=== PATIENT | male | born 1995 | race Caucasian/White ===

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

== ENCOUNTER 2017-01-01 14:46 | Emergency (ER) | payer OTHER ==
[~2017-01-01] VITALS: Ht 180.3 cm; Wt 56.7 kg
[2017-01-01] MEDS ORDERED: ONDANSETRON 2MG/ML, 2ML ONE (15:27)
[2017-01-01] MEDS ORDERED: ONDANSETRON 2MG/ML, 2ML IVPush ONE (15:30)
[2017-01-01] MEDS ORDERED: SODIUM CHLORIDE FLUSH 10ML SYR IVF ONE (15:30)
[2017-01-01] MEDS ORDERED: SODIUM CHLORIDE 0.9% 1,000ML IVBOLUS ONE ×2 (15:30→18:00)
[2017-01-01 15:55] LABS: ASPARTATE AMINO TRANSFERASE 25 U/L (15-37); BLOOD UREA NITROGEN 14 mg/dL (7-18)
[2017-01-01] MEDS ORDERED: MAALOX/HYOSCYAMINE/LIDOCAINE 45 ML BOTTLE ONE (15:59)
[2017-01-01] MEDS ORDERED: MAALOX/HYOSCYAMINE/LIDOCAINE 45 ML BOTTLE PO ONE (16:00)
[2017-01-01 16:59] VITALS: BP 123/65
== END 2017-01-01 17:51 ==
LOC: ED 15:31
DX: K21.9 Gastro-esophageal reflux disease without esophagitis (principal); R81 Glycosuria; D72.829 Elevated white blood cell count, unspecified; R73.9 Hyperglycemia, unspecified
CPT/HCPCS: 36415; 80053; 81001; 83690; 85025; 96361; 96374; 99284; J2405; J7030

== ENCOUNTER 2018-01-02 21:35 | Emergency (ER) | payer OTHER ==
[~2018-01-02] VITALS: Ht 180.3 cm; Wt 61.1 kg
[~2018-01-02 21:35] MED LIST changes: -ONDA-39 PO; +ONDA4TAB12 PO
[2018-01-02 22:18] LABS: BASOPHILS # (AUTO) 0.04 x10^3/uL (0-0.3); BASOPHILS % (AUTO) 0 % (0-1); EOSINOPHILS # (AUTO) 0.04 x10^3/uL (0-0.8); EOSINOPHILS % (AUTO) 0 % (1-7); LYMPHOCYTES % (AUTO) 20 % (22-44); MD NO; MEAN CORPUSCULAR HGB CONC 33.8 g/dL (33.2-36.2); MEAN CORPUSCULAR VOLUME 91.7 fL (81-97); MEAN PLATELET VOLUME 8.7 fL (7.4-10.4); MONOCYTES # (AUTO) 1.13 x10^3/uL (0-1.4); MONOCYTES % (AUTO) 11 % (2-9); NEUTROPHILS # (AUTO) 6.84 x10^3/uL (1.8-8.0); NEUTROPHILS % (AUTO) 68 % (42-75); PLATELET COUNT 226 x10^3/uL (130-400); RED BLOOD COUNT 4.47 x10^6/uL (4.38-5.82); RED CELL DISTRIBUTION WIDTH 13.4 % (9.4-14.8)
[2018-01-02 22:30] LABS: ALANINE AMINOTRANSFERASE 29 U/L (12-78); ALBUMIN 4.4 g/dL (3.4-5.0); ANION GAP 8 mmol/L (5-15); CALCIUM 9.1 mg/dL (8.5-10.1); CHLORIDE 106 mmol/L (98-107); CREATININE 0.79 mg/dL (0.7-1.3)
[2018-01-02] MEDS ORDERED: SODIUM CHLORIDE FLUSH 10ML SYR IVF ONE (22:30)
[2018-01-02] MEDS ORDERED: SODIUM CHLORIDE 0.9% 1,000ML IVBOLUS ONE (22:30)
[2018-01-02 22:32] LABS: ALKALINE PHOSPHATASE 93 U/L (45-117); BILIRUBIN,TOTAL 1.2 mg/dL (0.2-1.0)
[2018-01-02 22:36] LABS: MICROSCOPIC AUTO
[2018-01-02] MEDS ORDERED: DIPHENHYDRAMINE 50 MG/ML, 1ML ONE (22:42)
[2018-01-02] MEDS ORDERED: POTASSIUM CHLORIDE 20 MEQ TAB.ER.PRT ONE (22:42)
[2018-01-02 22:44] LABS: CULTURE INDICATED? NO
[2018-01-02 22:47] LABS: AMPHETAMINE SCREEN, URINE Negative (Negative); BARBITURATE SCREEN, URINE Negative (Negative); BENZODIAZEPINE SCREEN, URINE Negative (Negative); CANNABINOID SCREEN, URINE Positive (Negative); COCAINE SCREEN, URINE Negative (Negative); METHADONE SCREEN, URINE Negative (Negative); OPIATE SCREEN, URINE Negative (Negative)
[2018-01-02] MEDS ORDERED: POTASSIUM CHLORIDE 20 MEQ TAB.ER.PRT PO ONE (23:00)
[2018-01-02] MEDS ORDERED: DIPHENHYDRAMINE 50 MG/ML, 1ML IVPush ONE (23:00)
[2018-01-02 23:17] VITALS: BP 127/78
== END 2018-01-03 00:08 | disposition home or self-care (01) ==
LOC: ED 22:10
DX: F41.1 Generalized anxiety disorder (principal); E87.6 Hypokalemia; M62.838 Other muscle spasm
CPT/HCPCS: 36415; 71045; 80053; 80307; 81001; 85025; 96361; 96374; 99285; J1200; J7030

== ENCOUNTER 2018-04-15 02:58 | Emergency (ER) | payer OTHER ==
[~2018-04-15] VITALS: Ht 180.3 cm; Wt 63.8 kg
[2018-04-15 04:04] VITALS: BP 116/72
== END 2018-04-15 04:06 | disposition home or self-care (01) ==
LOC: ED 03:33
DX: F10.120 Alcohol abuse with intoxication, uncomplicated (principal); F19.129 Other psychoactive substance abuse with intoxication, unspecified; Z90.49 Acquired absence of other specified parts of digestive tract
CPT/HCPCS: 99283

== ENCOUNTER 2018-04-27 06:50 | Emergency (ER) | payer OTHER ==
[~2018-04-27] VITALS: Ht 180.3 cm; Wt 63.6 kg
[2018-04-27] MEDS ORDERED: METOCLOPRAMIDE 5 MG/ML, 2ML ONE (07:18)
[2018-04-27] MEDS ORDERED: DIPHENHYDRAMINE 50 MG/ML, 1ML ONE (07:18)
[2018-04-27] MEDS ORDERED: PROMETHAZINE 25 MG/ML, 1ML ONE (07:18)
[2018-04-27] MEDS ORDERED: MAALOX/HYOSCYAMINE/LIDOCAINE 45 ML BTL ONE (07:19)
[2018-04-27] MEDS ORDERED: FAMOTIDINE 20 MG/2 ML ONE (07:19)
[2018-04-27 07:30] LABS: BASOPHILS # (AUTO) 0.02 x10^3/uL (0-0.3); BASOPHILS % (AUTO) 0 % (0-1); EOSINOPHILS # (AUTO) 0.06 x10^3/uL (0-0.8); EOSINOPHILS % (AUTO) 1 % (1-7); LYMPHOCYTES # (AUTO) 1.76 x10^3/uL (1-6.1); LYMPHOCYTES % (AUTO) 14 % (22-44); MD NO; MEAN CORPUSCULAR HEMOGLOBIN 30.5 pg (27.5-34.5); MEAN CORPUSCULAR VOLUME 89.8 fL (81-97); MEAN PLATELET VOLUME 9.5 fL (7.4-10.4); MONOCYTES # (AUTO) 0.85 x10^3/uL (0-1.4); MONOCYTES % (AUTO) 7 % (2-9); NEUTROPHILS # (AUTO) 9.58 x10^3/uL (1.8-8.0); NEUTROPHILS % (AUTO) 78 % (42-75); PLATELET COUNT 245 x10^3/uL (130-400); RED BLOOD COUNT 4.79 x10^6/uL (4.38-5.82); RED CELL DISTRIBUTION WIDTH 13.1 % (9.4-14.8)
[2018-04-27] MEDS ORDERED: METOCLOPRAMIDE 5 MG/ML, 2ML IVPush ONE (07:30)
[2018-04-27] MEDS ORDERED: PROMETHAZINE 25 MG/ML, 1ML IM ONE (07:30)
[2018-04-27] MEDS ORDERED: SODIUM CHLORIDE 0.9% 1,000ML IVBOLUS ONE (07:30)
[2018-04-27] MEDS ORDERED: FAMOTIDINE 20 MG/2 ML IVP ONE (07:30)
[2018-04-27] MEDS ORDERED: CAPSAICIN CRM 0.075%, 60GM TP ONE (07:30)
[2018-04-27] MEDS ORDERED: DIPHENHYDRAMINE 50 MG/ML, 1ML IVPush ONE (07:30)
[2018-04-27] MEDS ORDERED: MAALOX/HYOSCYAMINE/LIDOCAINE 45 ML BTL PO ONE (07:30)
[2018-04-27 07:42] LABS: ALANINE AMINOTRANSFERASE 31 U/L (12-78); ALBUMIN 4.5 g/dL (3.4-5.0); ANION GAP 11 mmol/L (5-15); CALCIUM 9.4 mg/dL (8.5-10.1); CHLORIDE 105 mmol/L (98-107); CREATININE 0.96 mg/dL (0.7-1.3)
[2018-04-27 07:44] LABS: ALKALINE PHOSPHATASE 105 U/L (45-117); BILIRUBIN,TOTAL 0.9 mg/dL (0.2-1.0); TOTAL PROTEIN 7.3 g/dL (6.4-8.2)
[2018-04-27] MEDS ORDERED: HYDROmorphone 2 MG/ML, 1ML ONE (08:09)
[2018-04-27] MEDS ORDERED: ZIPRASIDONE 20 MG INJ IM ONE (08:30)
[2018-04-27] MEDS ORDERED: HYDROmorphone 1 MG/ML, 1ML IV ONE (08:30)
[2018-04-27] MEDS ORDERED: POTASSIUM CHLORIDE 20 MEQ TAB.ER.PRT PO ONE (08:30)
[2018-04-27] MEDS ORDERED: SODIUM CHLORIDE 0.9% 100 ML IV ONE (08:30)
[2018-04-27] MEDS ORDERED: POTASSIUM CHLORIDE 20 MEQ TAB.ER.PRT ONE (08:45)
[2018-04-27 10:04] VITALS: BP 108/69
== END 2018-04-27 10:06 | disposition home or self-care (01) ==
LOC: ED 07:18
DX: R10.13 Epigastric pain (principal); R11.2 Nausea with vomiting, unspecified; E86.0 Dehydration; E87.6 Hypokalemia; F17.200 Nicotine dependence, unspecified, uncomplicated
CPT/HCPCS: 36415; 80053; 80307; 83690; 85025; 96361; 96372; 96374; 96375; 99284; J1170; J1200; J2550; J2765; J3490; J7030

== ENCOUNTER 2018-10-27 12:36 | Emergency (ER) | payer OTHER ==
[~2018-10-27] VITALS: Ht 180.3 cm; Wt 62.2 kg
[2018-10-27 13:11] LABS: BASOPHILS # (AUTO) 0.03 x10^3/uL (0-0.1); BASOPHILS % (AUTO) 0 % (0-1); EOSINOPHILS % (AUTO) 0 % (1-7); LYMPHOCYTES # (AUTO) 1.03 x10^3/uL (1-3.4); LYMPHOCYTES % (AUTO) 6 % (22-44); MD NO; MEAN CORPUSCULAR HEMOGLOBIN 31.2 pg (27.5-34.5); MEAN CORPUSCULAR HGB CONC 34.2 g/dL (33.2-36.2); MEAN CORPUSCULAR VOLUME 91.1 fL (81-97); MEAN PLATELET VOLUME 9.8 fL (7.4-10.4); MONOCYTES # (AUTO) 0.72 x10^3/uL (0.2-0.8); MONOCYTES % (AUTO) 4 % (2-9); NEUTROPHILS # (AUTO) 15.28 x10^3/uL (1.8-6.8); NEUTROPHILS % (AUTO) 90 % (42-75); PLATELET COUNT 264 x10^3/uL (130-400); RED BLOOD COUNT 5.14 x10^6/uL (4.38-5.82); RED CELL DISTRIBUTION WIDTH 12.8 % (9.4-14.8)
[2018-10-27 13:19] LABS: ALANINE AMINOTRANSFERASE 27 U/L (12-78); ALBUMIN 4.9 g/dL (3.4-5.0); ANION GAP 9 mmol/L (5-15); CALCIUM 9.9 mg/dL (8.5-10.1); CHLORIDE 108 mmol/L (98-107); CREATININE 0.97 mg/dL (0.7-1.3)
[2018-10-27 13:21] LABS: ALKALINE PHOSPHATASE 129 U/L (45-117); BILIRUBIN,TOTAL 0.9 mg/dL (0.2-1.0); TOTAL PROTEIN 7.9 g/dL (6.4-8.2)
--- NOTE | 2018-10-27 13:30 | NUR ---
ACCOUNTS PAYABLE OR RECEIVABLE CLERK: PT TO ED ROOM 14 FROM LOBBY IN NAD AT THIS TIME
--- NOTE | 2018-10-27 13:43 | NUR ---
PT RESTING IN POSITION OF COMFORT IN [place]. AWARE OF NEED FOR UA, CUP AT BEDSIDE, PT INSTRUCTED ON USE OF CALL LIGHT, VERBALIZED UNDERSTANDING. FALL PRECAUTIONS IN PLACE. CONT SPO2 MONITORING IN PLACE. VSS.
[2018-10-27] MEDS ORDERED: FAMOTIDINE 20 MG TABLET ONE (13:47)
[2018-10-27] MEDS ORDERED: ONDANSETRON ODT 4 MG ONE (13:47)
[2018-10-27] MEDS ORDERED: MAALOX/HYOSCYAMINE/LIDOCAINE 45 ML BTL ONE (13:47)
[2018-10-27] MEDS ORDERED: ONDANSETRON ODT 4 MG PO ONE (14:00)
[2018-10-27] MEDS ORDERED: MAALOX/HYOSCYAMINE/LIDOCAINE 45 ML BTL PO ONE (14:00)
[2018-10-27] MEDS ORDERED: FAMOTIDINE 20 MG TABLET PO ONE (14:00)
--- NOTE | 2018-10-27 14:14 | NUR ---
RECEIVED BEDSIDE REPORT FROM DOMINIK GAVIRIA.
--- NOTE | 2018-10-27 14:19 | NUR ---
PER EDPA, UA NOT NEEDED
[2018-10-27] MEDS ORDERED: PROMETHAZINE 25 MG/ML, 1ML IM ONE (14:30)
[2018-10-27] MEDS ORDERED: PROMETHAZINE 25 MG/ML, 1ML ONE (15:03)
--- NOTE | 2018-10-27 15:07 | NUR ---
PT RESTING ON GURNEY. PT STATES HE HAS SPECIALIST FOR HIS STOMACH IN [place], PT WILL FOLLOW UP WHEN HE GET HOME. NO NEEDS REQUESTED AT THIS TIME.
[2018-10-27] MEDS ORDERED: SODIUM CHLORIDE FLUSH 10ML SYR IVF ONE (15:30)
[2018-10-27] MEDS ORDERED: SODIUM CHLORIDE 0.9% 1,000ML IVBOLUS ONE (15:30)
--- NOTE | 2018-10-27 15:42 | NUR ---
piv established. pt tolerated with no complications. no needs requested at this time.
--- NOTE | 2018-10-27 16:16 | NUR ---
PT RESTING ON [facility]. IVF INFUSING. AWAITING CT.
--- NOTE | 2018-10-27 17:13 | NUR ---
pt to imaging
--- NOTE | 2018-10-27 17:22 | NUR ---
PT BACK FROM IMAGING.
[2018-10-27] MEDS ORDERED: OMNIPAQUE 350 MG/ML, 100ML BOTTLE ONE (17:25)
--- NOTE | 2018-10-27 17:32 | NUR ---
pt resting on lilia. NO ACUTE DISTRESS NOTED. PT STATES "WILL I BE DONE HERE BY 6PM? MY RIDE TO [place] IS LEAVING AT 6pm AND I HAVE TO GO WITH THEM." NO NEEDS REQUESTED AT THIS TIME. Addendum: 10/27/18 at 1733 by KWVANESA EDUCATED PT REGARDING RADIOLOGY READING AND EDMD SEEING RESULTED IMAGE.
[2018-10-27 17:35] VITALS: BP 114/67
--- NOTE | 2018-10-27 17:54 | NUR ---
Patient/Caregiver given discharge instructions and they have confirmed that they understand the instructions. Patient ambulatory with steady gait. PT LEFT WITH ALL PERSONAL BELONGINGS.
== END 2018-10-27 17:56 | disposition home or self-care (01) ==
LOC: ED 15:39
DX: R10.13 Epigastric pain (principal); R10.11 Right upper quadrant pain; R10.12 Left upper quadrant pain; R11.2 Nausea with vomiting, unspecified; R19.7 Diarrhea, unspecified; Z88.8 Allergy status to other drugs, medicaments and biological substances; Z90.89 Acquired absence of other organs
CPT/HCPCS: 36415; 74177; 80053; 83690; 85025; 96360; 96372; 99284; J2550; J7030; Q0162; Q9967

== ENCOUNTER 2019-05-28 09:03 | Inpatient (IN) | payer BC, OTHER ==
[~2019-05-28] VITALS: Ht 180.3 cm; Wt 63.6 kg
[~2019-05-28 09:03] MED LIST changes: -ACET-1757 PO; +ACET-2065 PO
--- NOTE | 2019-05-28 09:51 | NUR ---
PT IN BED, SMALL EMESIS X 1, BILE COLORED. IV STARTED, LABS DRAWN AND SENT. ERP AT BEDSIDE. REPORT TO DOMINIK MADSEN.
[2019-05-28] MEDS ORDERED: FAMOTIDINE 20 MG/2 ML ONE (09:54)
[2019-05-28] MEDS ORDERED: MAALOX/HYOSCYAMINE/LIDOCAINE 45 ML BTL ONE (09:54)
[2019-05-28] MEDS ORDERED: ONDANSETRON 2MG/ML, 2ML ONE ×2 (09:54→13:07)
[2019-05-28 10:00] LABS: MEAN CORPUSCULAR HEMOGLOBIN 30.7 pg (27.5-34.5); MEAN CORPUSCULAR HGB CONC 33.8 g/dL (33.2-36.2); MEAN PLATELET VOLUME 8.7 fL (7.4-10.4); PLATELET COUNT 285 x10^3/uL (130-400); RED BLOOD COUNT 5.31 x10^6/uL (4.38-5.82); RED CELL DISTRIBUTION WIDTH 12.9 % (9.4-14.8)
[2019-05-28] MEDS ORDERED: ONDANSETRON 2MG/ML, 2ML IVPush ONE ×2 (10:00→13:00)
[2019-05-28] MEDS ORDERED: SODIUM CHLORIDE FLUSH 10ML SYR IVF ONE (10:00)
[2019-05-28] MEDS ORDERED: SODIUM CHLORIDE 0.9% 1,000ML IVBOLUS ONE (10:00)
[2019-05-28] MEDS ORDERED: FAMOTIDINE 20 MG/2 ML IVPush ONE (10:00)
[2019-05-28] MEDS ORDERED: MAALOX/HYOSCYAMINE/LIDOCAINE 45 ML BTL PO ONE (10:00)
--- NOTE | 2019-05-28 10:04 | NUR ---
PT RESTING IN ROOM. VSS. PT MEDICATED PER MAR AND IVF STARTED. NO VOMITING SINCE PACKAGING COORDINATOR. NO NEEDS EXPRESSED. CALL LIGHT WITHIN REACH. AWAITING RESUTLS.
[2019-05-28 10:10] LABS: MICROSCOPIC INDICATED
[2019-05-28 10:10] LABS: ALANINE AMINOTRANSFERASE 35 U/L (12-78); ALBUMIN 4.6 g/dL (3.4-5.0); ANION GAP 10 mmol/L (5-15); CALCIUM 9.4 mg/dL (8.5-10.1); CHLORIDE 107 mmol/L (98-107); CREATININE 0.95 mg/dL (0.7-1.3)
[2019-05-28 10:12] LABS: ALKALINE PHOSPHATASE 122 U/L (45-117); BILIRUBIN,TOTAL 0.6 mg/dL (0.2-1.0); TOTAL PROTEIN 7.5 g/dL (6.4-8.2)
[2019-05-28] MEDS ORDERED: METOCLOPRAMIDE 5 MG/ML, 2ML ONE (10:20)
[2019-05-28] MEDS ORDERED: DIPHENHYDRAMINE 50 MG/ML, 1ML ONE (10:20)
--- NOTE | 2019-05-28 10:21 | NUR ---
PT STILL DRY HEAVING. PT REPORT HASN'T EATEN SINCE LAST NOC, SO "THERE ISN'T ANYTHIGN TO THROW UP." DR. BAEZ NOTIFIED. AWAITING NEW ORDERS.
[2019-05-28 10:29] LABS: MD YES
[2019-05-28] MEDS ORDERED: DIPHENHYDRAMINE 50 MG/ML, 1ML IVPush ONE (10:30)
[2019-05-28] MEDS ORDERED: METOCLOPRAMIDE 5 MG/ML, 2ML IVPush ONE (10:30)
[2019-05-28 10:33] LABS: BAND#(MANUAL) 2.85 x10^3/uL; BANDS%(MANUAL) 13 % (0-7); BASOS#(MANUAL) 0.22 x10^3/uL (0-0.1); BASOS% (MANUAL) 1 % (0-1); LYMPHS% (MANUAL) 16 % (22-44); MONOS#(MANUAL) 0.44 x10^3/uL (0.3-2.7); MONOS% (MANUAL) 2 % (2-9); SEG#(MANUAL) 14.89 x10^3/uL (1.8-6.8); SEGS% (MANUAL) 68 % (42-75)
--- NOTE | 2019-05-28 10:35 | NUR ---
PT MEDICATED PER MAR.
[2019-05-28 10:38] LABS: <PLATELET ESTIMATE> ADEQUATE; <RBC MORPHOLOGY> NORMAL; LARGE PLATELETS 1+
--- NOTE | 2019-05-28 10:49 | NUR ---
new orders for abd ct received.
--- NOTE | 2019-05-28 11:41 | NUR ---
pt to ct.
[2019-05-28] MEDS ORDERED: OMNIPAQUE 350 MG/ML, 100ML BOTTLE ONE (11:47)
--- NOTE | 2019-05-28 11:52 | NUR ---
PT MALORIE FROM CT. TO BS TO REEVALUATE. PT REMAINS N/V. PER EDMD, WILL ADD ON MEDICATIONS. AWAITING ORDERS.
[2019-05-28] MEDS ORDERED: PROMETHAZINE 25 MG/ML, 1ML ONE (11:54)
[2019-05-28] MEDS ORDERED: PROMETHAZINE 25 MG/ML, 1ML IM ONE (12:00)
[2019-05-28] MEDS ORDERED: METRONIDAZOLE PMX 500MG/100ML 100 ML IV ONE (12:00)
[2019-05-28] MEDS ORDERED: AMPICILLIN/SULBACTAM 3 GM in SODIUM CHLORIDE 0.9% 100 ML IV ONE (12:00)
--- NOTE | 2019-05-28 12:01 | NUR ---
pt medicted per mar. vss.
[2019-05-28] MEDS ORDERED: METRONIDAZOLE PMX 500MG/100ML 100 ML ONE (12:07)
[2019-05-28] MEDS ORDERED: MORPHINE SULFATE 4 MG/ML, 1ML ONE (12:38)
[2019-05-28] MEDS ORDERED: GUAIFENESIN/DM 200-20MG, 10ML UDC PO PRN (13:00)
[2019-05-28] MEDS ORDERED: POLYETHYLENE GLYCOL 17 GM PACKET PO PRN (13:00)
[2019-05-28] MEDS ORDERED: MORPHINE SULFATE 4 MG/ML, 1ML IVPush ONE (13:00)
[2019-05-28] MEDS ORDERED: KETOROLAC 30 MG/1 ML IV PRN (13:00)
[2019-05-28] MEDS ORDERED: BUTALB/APAP/CAFFEINE 50MG/325MG/40MG PO PRN ×2 (13:00)
[2019-05-28] MEDS ORDERED: ACETAMINOPHEN 325 MG TABLET PO PRN (13:00)
[2019-05-28] MEDS ORDERED: hydrALAzine 20 MG/ML, 1ML IVPush PRN (13:00)
--- NOTE | 2019-05-28 13:13 | NUR ---
pt resting in room. vss. hospitalist to bs. assessment complete and floor orders received. ivf started. repeat ekg completed per Dr. Ramirez. orders for zofran received ang med administered. no needs expressed at this time. call light within reach. awaiting room assignment.
--- NOTE | 2019-05-28 13:31 | NUR ---
report to yulia aceves. pt ready for transport.
[2019-05-28] MEDS: D5%-0.45% NACL 1,000 ML IV SCH (14:10)
[2019-05-28 14:52] VITALS: BP 110/61
[2019-05-28] MEDS: LACTOBACILLUS 1GM/ PACKET PO SCH ×2 (16:52→22:14)
[2019-05-28] MEDS: ONDANSETRON 2MG/ML, 2ML IVPush PRN (16:53)
[2019-05-28 19:26] VITALS: BP 101/59
[2019-05-28] MEDS: METRONIDAZOLE PMX 500MG/100ML 100 ML IV SCH (22:04)
[2019-05-28] MEDS: METOCLOPRAMIDE 5 MG/ML, 2ML IVPush PRN (22:22)
[2019-05-28] MEDS: TEMAZEPAM 15 MG CAPSULE PO PRN (22:28)
[2019-05-28] MEDS: CEFTRIAXONE PMX 1GM/50ML 50 ML IV SCH (23:55)
[2019-05-29 01:19] VITALS: BP 104/61
[2019-05-29] MEDS: D5%-0.45% NACL 1,000 ML IV SCH (05:15)
[2019-05-29] MEDS: LACTOBACILLUS 1GM/ PACKET PO SCH ×4 (05:58→20:22)
[2019-05-29] MEDS: METRONIDAZOLE PMX 500MG/100ML 100 ML IV SCH ×3 (05:59→21:48)
[2019-05-29] MEDS: HYDROmorphone 2 MG/ML, 1ML IVPush PRN ×4 (06:14→21:48)
[2019-05-29 06:15] VITALS: BP 132/77
[2019-05-29] MEDS: ONDANSETRON 2MG/ML, 2ML IVPush PRN ×3 (06:15→21:47)
[2019-05-29 06:30] LABS: MEAN CORPUSCULAR HEMOGLOBIN 30.9 pg (27.5-34.5); MEAN CORPUSCULAR HGB CONC 33.3 g/dL (33.2-36.2); MEAN CORPUSCULAR VOLUME 92.7 fL (81-97); MEAN PLATELET VOLUME 9.5 fL (7.4-10.4); PLATELET COUNT 236 x10^3/uL (130-400); RED BLOOD COUNT 4.93 x10^6/uL (4.38-5.82)
[2019-05-29 06:49] LABS: BASOPHILS # (AUTO) 0.04 x10^3/uL (0-0.1); BASOPHILS % (AUTO) 0 % (0-1); EOSINOPHILS # (AUTO) 0.26 x10^3/uL (0-0.4); EOSINOPHILS % (AUTO) 2 % (1-7); LYMPHOCYTES % (AUTO) 16 % (22-44); MD SCAN; MONOCYTES % (AUTO) 10 % (2-9); NEUTROPHILS # (AUTO) 8.32 x10^3/uL (1.8-6.8); NEUTROPHILS % (AUTO) 72 % (42-75)
[2019-05-29] MEDS: CEFTRIAXONE PMX 1GM/50ML 50 ML IV SCH ×2 (08:35→20:25)
[2019-05-29] MEDS ORDERED: POTASSIUM CHLORIDE 20 MEQ TAB.ER.PRT PO ONE (10:00)
[2019-05-29] MEDS: ONDANSETRON ODT 4 MG PO PRN ×2 (11:35→16:18)
[2019-05-29 12:57] VITALS: BP 105/66
[2019-05-29 19:25] VITALS: BP 113/66
[2019-05-29] MEDS: METOCLOPRAMIDE 5 MG/ML, 2ML IVPush PRN (20:25)
[2019-05-30] MEDS: ONDANSETRON ODT 4 MG PO PRN (01:41)
[2019-05-30] MEDS: HYDROmorphone 2 MG/ML, 1ML IVPush PRN ×3 (01:42→13:54)
[2019-05-30 02:04] VITALS: BP 130/68
[2019-05-30] MEDS: METRONIDAZOLE PMX 500MG/100ML 100 ML IV SCH ×3 (05:57→21:56)
[2019-05-30] MEDS: METOCLOPRAMIDE 5 MG/ML, 2ML IVPush PRN ×3 (05:58→20:08)
[2019-05-30] MEDS: LACTOBACILLUS 1GM/ PACKET PO SCH ×5 (06:01→20:09)
[2019-05-30] MEDS: D5%-0.45% NACL 1,000 ML IV SCH (06:01)
[2019-05-30] MEDS: ONDANSETRON 2MG/ML, 2ML IVPush PRN ×2 (07:12→23:48)
[2019-05-30] MEDS: CEFTRIAXONE PMX 1GM/50ML 50 ML IV SCH ×2 (08:18→20:08)
[2019-05-30 08:48] VITALS: BP 122/68
[2019-05-30 09:38] VITALS: BP 109/61
[2019-05-30] MEDS ORDERED: PROCHLORPERAZINE 5 MG/ML, 2ML IVPush ONE (10:30)
[2019-05-30] MEDS ORDERED: DIPHENHYDRAMINE 50 MG/ML, 1ML IVPush ONE (10:30)
[2019-05-30 11:28] LABS: BASOPHILS # (AUTO) 0.02 x10^3/uL (0-0.1); BASOPHILS % (AUTO) 0 % (0-1); EOSINOPHILS # (AUTO) 0.01 x10^3/uL (0-0.4); EOSINOPHILS % (AUTO) 0 % (1-7); LYMPHOCYTES # (AUTO) 1.05 x10^3/uL (1-3.4); LYMPHOCYTES % (AUTO) 10 % (22-44); MD NO; MEAN CORPUSCULAR HEMOGLOBIN 30.4 pg (27.5-34.5); MEAN CORPUSCULAR HGB CONC 33.6 g/dL (33.2-36.2); MEAN CORPUSCULAR VOLUME 90.5 fL (81-97); MEAN PLATELET VOLUME 8.6 fL (7.4-10.4); MONOCYTES # (AUTO) 0.49 x10^3/uL (0.2-0.8); MONOCYTES % (AUTO) 5 % (2-9); NEUTROPHILS # (AUTO) 9.13 x10^3/uL (1.8-6.8); NEUTROPHILS % (AUTO) 85 % (42-75); PLATELET COUNT 245 x10^3/uL (130-400); RED BLOOD COUNT 5.23 x10^6/uL (4.38-5.82); RED CELL DISTRIBUTION WIDTH 12.9 % (9.4-14.8)
[2019-05-30 11:40] LABS: ALANINE AMINOTRANSFERASE 34 U/L (12-78); ALBUMIN 4.4 g/dL (3.4-5.0); ANION GAP 12 mmol/L (5-15); CALCIUM 9.2 mg/dL (8.5-10.1); CHLORIDE 106 mmol/L (98-107); CREATININE 0.98 mg/dL (0.7-1.3)
[2019-05-30 11:43] LABS: ALKALINE PHOSPHATASE 99 U/L (45-117); BILIRUBIN,TOTAL 1.3 mg/dL (0.2-1.0); TOTAL PROTEIN 7.5 g/dL (6.4-8.2)
[2019-05-30 13:24] VITALS: BP 116/68
[2019-05-30 16:53] LABS: CLOSTRIDIUM DIFFICILE ANTIGEN NEGATIVE; CLOSTRIDIUM DIFFICILE TOXIN NEGATIVE (Negative)
[2019-05-30] MEDS ORDERED: MAGNESIUM SULFATE PMX 2GM/50ML 50 ML IV ONE (17:00)
[2019-05-30] MEDS ORDERED: POTASSIUM CHLORIDE 40 MEQ in SODIUM CHLORIDE 0.9% 500 ML IV ONE (17:00)
[2019-05-30 19:40] VITALS: BP 117/67
[2019-05-30] MEDS: morphine SULFATE 10 MG/ML, 1ML IVPush PRN ×2 (20:09→23:48)
[2019-05-30] MEDS: TEMAZEPAM 15 MG CAPSULE PO PRN (21:42)
[2019-05-31 01:26] VITALS: BP 97/54
[2019-05-31] MEDS: METOCLOPRAMIDE 5 MG/ML, 2ML IVPush PRN (06:06)
[2019-05-31] MEDS: METRONIDAZOLE PMX 500MG/100ML 100 ML IV SCH (06:08)
[2019-05-31] MEDS: LACTOBACILLUS 1GM/ PACKET PO SCH ×2 (06:08→11:00)
[2019-05-31] MEDS: morphine SULFATE 10 MG/ML, 1ML IVPush PRN (06:08)
[2019-05-31 07:39] VITALS: BP 125/60
[2019-05-31] MEDS: CEFTRIAXONE PMX 1GM/50ML 50 ML IV SCH (07:46)
[2019-05-31 08:10] LABS: BASOPHILS # (AUTO) 0.09 x10^3/uL (0-0.1); BASOPHILS % (AUTO) 1 % (0-1); EOSINOPHILS # (AUTO) 0.03 x10^3/uL (0-0.4); EOSINOPHILS % (AUTO) 0 % (1-7); LYMPHOCYTES # (AUTO) 1.26 x10^3/uL (1-3.4); LYMPHOCYTES % (AUTO) 11 % (22-44); MD NO; MEAN PLATELET VOLUME 8.6 fL (7.4-10.4); MONOCYTES % (AUTO) 6 % (2-9); NEUTROPHILS # (AUTO) 9.91 x10^3/uL (1.8-6.8); NEUTROPHILS % (AUTO) 83 % (42-75); PLATELET COUNT 231 x10^3/uL (130-400); RED BLOOD COUNT 5.07 x10^6/uL (4.38-5.82); RED CELL DISTRIBUTION WIDTH 12.8 % (9.4-14.8)
[2019-05-31 08:21] LABS: ALBUMIN 4.3 g/dL (3.4-5.0); ANION GAP 12 mmol/L (5-15); CHLORIDE 106 mmol/L (98-107)
[2019-05-31 08:25] LABS: ALANINE AMINOTRANSFERASE 30 U/L (12-78); ALKALINE PHOSPHATASE 96 U/L (45-117); BILIRUBIN,TOTAL 1.3 mg/dL (0.2-1.0); CREATININE 0.77 mg/dL (0.7-1.3); TOTAL PROTEIN 7.1 g/dL (6.4-8.2)
[2019-05-31 08:51] LABS: CRYPTOSPORIDIUM ANTIGEN Negative (Negative)
[2019-05-31] MEDS ORDERED: METR500T PO (08:51)
[2019-05-31] MEDS ORDERED: CEFD300C37 PO (08:51)
[2019-05-31] MEDS ORDERED: ONDA4TAB13 PO (08:51)
[2019-05-31] MEDS ORDERED: FLU VACC QS2019-20 36MOS UP/PF 0.5 ML IM-VACC ONE (13:00)
== END 2019-05-31 13:51 | disposition home or self-care (01) | DRG 387 ==
LOC: ED 10:11 → EDIP 12:06 → 3N 13:43 → DCLOUNGE 05-31 13:46
PROVIDERS: ADMIT Family Medicine; ATTEND Family Medicine
DX: K51.90 Ulcerative colitis, unspecified, without complications (principal); D72.825 Bandemia; E87.6 Hypokalemia; F12.90 Cannabis use, unspecified, uncomplicated; G43.909 Migraine, unspecified, not intractable, without status migrainosus; Z88.8 Allergy status to other drugs, medicaments and biological substances
CPT/HCPCS: 36415; 87046; 89055; 99285; J3490; 74177; 80053; 81001; 83735; 85025; 87324; 87328; 87329; 90686; 93005; G0378; J0295; J0696; J1170; J2405; J2550; J3480; Q0162; Q9967; J0780; J1200; J2270; J2765; J3475; J7030; J7040

== ENCOUNTER 2019-06-02 06:36 | Emergency (ER) | payer BC ==
[~2019-06-02] VITALS: Ht 180.3 cm; Wt 63.8 kg
[~2019-06-02 06:36] MED LIST changes: +CEFD300C37 PO; +METR500T PO; +ONDA4TAB13 PO
[2019-06-02] MEDS ORDERED: PROMETHAZINE 25 MG/ML, 1ML IM ONE (07:00)
[2019-06-02] MEDS ORDERED: PROMETHAZINE 25 MG/ML, 1ML ONE (07:09)
--- NOTE | 2019-06-02 07:20 | NUR ---
PT MEDICATED PER ERP ORDER FOR N/V. WARM BLANKETS PROVIDED, CALL LIGHT WITHIN REACH. PT AWARE OF NEED FOR UA, URINE CUP AT BS.
[2019-06-02 07:23] LABS: BASOPHILS # (AUTO) 0.02 x10^3/uL (0-0.1); BASOPHILS % (AUTO) 0 % (0-1); EOSINOPHILS # (AUTO) 0.08 x10^3/uL (0-0.4); EOSINOPHILS % (AUTO) 1 % (1-7); LYMPHOCYTES # (AUTO) 1.51 x10^3/uL (1-3.4); LYMPHOCYTES % (AUTO) 19 % (22-44); MD NO; MEAN CORPUSCULAR HEMOGLOBIN 30.6 pg (27.5-34.5); MEAN CORPUSCULAR HGB CONC 33.8 g/dL (33.2-36.2); MEAN CORPUSCULAR VOLUME 90.7 fL (81-97); MEAN PLATELET VOLUME 8.9 fL (7.4-10.4); MONOCYTES # (AUTO) 0.69 x10^3/uL (0.2-0.8); MONOCYTES % (AUTO) 9 % (2-9); NEUTROPHILS # (AUTO) 5.46 x10^3/uL (1.8-6.8); NEUTROPHILS % (AUTO) 70 % (42-75); PLATELET COUNT 268 x10^3/uL (130-400); RED BLOOD COUNT 5.49 x10^6/uL (4.38-5.82); RED CELL DISTRIBUTION WIDTH 12.5 % (9.4-14.8)
[2019-06-02 07:32] LABS: ALBUMIN 4.8 g/dL (3.4-5.0); ANION GAP 9 mmol/L (5-15); CALCIUM 9.6 mg/dL (8.5-10.1); CHLORIDE 104 mmol/L (98-107); CREATININE 0.97 mg/dL (0.7-1.3)
--- NOTE | 2019-06-02 08:06 | NUR ---
URINE COLLECTED/SENT TO LAB. PT STATES "FEELING BETTER" AFTER PHENERGAN, NO N/V. CALL LIGHT WITHIN REACH.
[2019-06-02 08:19] LABS: MICROSCOPIC INDICATED
[2019-06-02 08:20] LABS: CULTURE INDICATED? YES
--- NOTE | 2019-06-02 09:00 | NUR ---
UA RESULTS BACK, PT FOR RECHECK.
[2019-06-02 09:05] VITALS: BP 121/64
== END 2019-06-02 09:35 | disposition home or self-care (01) ==
LOC: ED 09:29
DX: R11.2 Nausea with vomiting, unspecified (principal); R19.7 Diarrhea, unspecified
CPT/HCPCS: 36415; 80048; 81001; 82040; 85025; 87086; 96372; 99283; J2550

== ENCOUNTER 2020-03-09 09:38 | Emergency (ER) | payer BC ==
[~2020-03-09] VITALS: Ht 180.3 cm; Wt 62.0 kg
[~2020-03-09 09:38] MED LIST changes: +ONDA-89 PO; -ONDA4TAB12 PO
[2020-03-09] MEDS ORDERED: ONDANSETRON 2MG/ML, 2ML ONE (09:55)
[2020-03-09] MEDS ORDERED: ONDANSETRON 2MG/ML, 2ML IVPush ONE (10:00)
[2020-03-09] MEDS ORDERED: SODIUM CHLORIDE FLUSH 10ML SYR IVF ONE (10:00)
[2020-03-09] MEDS ORDERED: SODIUM CHLORIDE 0.9% 1,000ML IVBOLUS ONE (10:00)
--- NOTE | 2020-03-09 10:12 | NUR ---
pt presents to ED with c/o generalized abd pain, n/v/d, cough, and loss of taste/smell onset this am. pt denies sick contacts. on arrival, pt vomiting q10min. bp and spo2 monitors. PIV placed. pt medicated per emar, tolerating well. pt placed in droplet + isolation. call light in reach. awaiting labwork results and dispo.
[2020-03-09] MEDS ORDERED: PROCHLORPERAZINE 5 MG/ML, 2ML ONE (10:19)
[2020-03-09 10:20] LABS: BASOPHILS # (AUTO) 0.03 x10^3/uL (0-0.1); BASOPHILS % (AUTO) 0 % (0-1); EOSINOPHILS # (AUTO) 0.08 x10^3/uL (0-0.4); EOSINOPHILS % (AUTO) 1 % (1-7); LYMPHOCYTES # (AUTO) 1.62 x10^3/uL (1-3.4); LYMPHOCYTES % (AUTO) 15 % (22-44); MD NO; MEAN CORPUSCULAR HEMOGLOBIN 29.6 pg (27.5-34.5); MEAN CORPUSCULAR HGB CONC 32.6 g/dL (33.2-36.2); MEAN PLATELET VOLUME 9.2 fL (7.4-10.4); MONOCYTES # (AUTO) 0.68 x10^3/uL (0.2-0.8); MONOCYTES % (AUTO) 6 % (2-9); NEUTROPHILS # (AUTO) 8.24 x10^3/uL (1.8-6.8); NEUTROPHILS % (AUTO) 77 % (42-75); PLATELET COUNT 219 x10^3/uL (130-400); RED BLOOD COUNT 5.49 x10^6/uL (4.38-5.82)
[2020-03-09] MEDS ORDERED: PROCHLORPERAZINE 5 MG/ML, 2ML IVPush ONE (10:30)
[2020-03-09 10:33] LABS: ALANINE AMINOTRANSFERASE 39 U/L (12-78); ALBUMIN 4.4 g/dL (3.4-5.0); ANION GAP 10 mmol/L (5-15); CALCIUM 9.6 mg/dL (8.5-10.1); CHLORIDE 107 mmol/L (98-107); CREATININE 0.91 mg/dL (0.7-1.3)
[2020-03-09 10:36] LABS: ALKALINE PHOSPHATASE 140 U/L (45-117); BILIRUBIN,TOTAL 0.5 mg/dL (0.2-1.0)
[2020-03-09 10:37] VITALS: BP 140/102
--- NOTE | 2020-03-09 10:52 | NUR ---
pt resting on gurney, a&o, resps even and unlabored. pt is texting on phone, vomiting resolved. awaiting provider recheck and dispo.
--- NOTE | 2020-03-09 11:32 | NUR ---
piv dc'd with tip intact. NS bolus completed. pt reports symptoms have resolved completely, tolerating POs. Pt given dc instructions, pt ambulatory to dc desk with steady gait. all questions answered.
== END 2020-03-09 11:34 | disposition home or self-care (01) ==
LOC: ED 10:30
DX: R11.2 Nausea with vomiting, unspecified (principal); R10.84 Generalized abdominal pain; E87.6 Hypokalemia
CPT/HCPCS: 36415; 80053; 83690; 85025; 96361; 96374; 96375; 99284; J0780; J2405; J7030